=== PATIENT | female | born 1985 | race Caucasian/White ===

== ENCOUNTER → 2016-09-29 | Outpatient (CLI) | payer OTHER ==
--- NOTE | 2016-09-29 17:14 | DIAGNOSTIC IMAGING REPORT ---
PROCEDURE: US OB 1ST TRIMESTER W/TRANSVAG INDICATION: Vaginal bleeding. Check viability. TECHNIQUE: Mcmanus scale, color, and spectral Doppler transabdominal and endovaginal sonographic images of the first trimester gravid uterus were obtained. COMPARISON: None. FINDINGS: TRANSABDOMINAL SCANS: Early intrauterine . Kidneys are normal. TRANSVAGINAL SCANS: Early intrauterine (0.2 cm, 5.7 weeks). Findings suggest cardiac activity (101). Normal yolk sac. Normal fluid. Placenta circumferential with a small 1.7 x 0.7 cm lower uterine segment subchorionic hemorrhage. Normal cervix length (4.2 cm). There is a 2.7 cm simple right ovarian cyst. IMPRESSION: 1. Early intrauterine at 5.7 weeks menstrual age (plus or minus 0.7 weeks). BRITTNEY is 05/27/2017. 2. While this represents a very early , findings suggest cardiac activity (101). 3. Small 1.7 x 0.7 cm lower uterine segment subchorionic hemorrhage. 4. Findings called to Dr. Funmilayo Wagner.
== END ==
LOC: US SRH 16:14
DX: O46.8X1 Other antepartum hemorrhage, first trimester (principal); Z3A.01 Less than 8 weeks gestation of pregnancy

== ENCOUNTER 2016-10-09 15:53 | Outpatient (CLI) | payer OTHER ==
--- NOTE | 2016-10-09 18:26 | DIAGNOSTIC IMAGING REPORT ---
PROCEDURE: US OB 1ST TRIMESTER W/TRANSVAG INDICATION: VIABILITY TECHNIQUE: Mcmanus scale, color, and spectral Doppler transabdominal and endovaginal sonographic images of the first trimester gravid uterus were obtained. COMPARISON: 09/29/2016 FINDINGS: TRANSABDOMINAL SCANS: The gravid uterus is anteverted in position and contains a fundal gestational sac with a moderate decidual response. No visible perigestational hemorrhage. The cervix is closed. TRANSVAGINAL SCANS: Closed cervix measuring at least 5.2 cm in length. There is a fundal gestational sac with an average diameter of 1.9 cm. Sac contains a pole and yolk sac. Average crown-rump length is 1.3 cm. The yolk sac is of normal caliber. Detectable cardiac activity at a rate of 147 beats per minute. 2.8 cm dominant follicle on the right ovary. A thick-walled follicle on the left ovary. Moderate cul-de-sac fluid. IMPRESSION: 1. Single living intrauterine with gestational age of 7 weeks 4 days and estimated due date of 05/24/2017. 2. Interval resolution of tiny lower uterine segment perigestational hemorrhage. 3. Simple decompressing right ovarian cyst and probable left ovarian corpus luteum.
== END 2016-10-09 23:00 ==
LOC: US SRH 15:53
DX: Z34.91 Encounter for supervision of normal pregnancy, unspecified, first trimester (principal); Z3A.01 Less than 8 weeks gestation of pregnancy

== ENCOUNTER 2016-11-10 14:55 | Outpatient (CLI) | payer OTHER ==
--- NOTE | 2016-11-10 15:58 | DIAGNOSTIC IMAGING REPORT ---
PROCEDURE: US OB 1ST TRIMESTER W/TRANSVAG INDICATION: F/U TO US 10/09,VAGINAL BLEEDING TECHNIQUE: Mcmanus scale, color, and spectral Doppler transabdominal sonographic images of the first trimester gravid uterus were obtained. COMPARISON: Ultrasound dated 10/09/2016 FINDINGS: TRANSABDOMINAL SCANS: The gravid uterus is anteverted in position and contains a fundal gestational sac with a moderate residual response. No perigestational hemorrhage. The cervix is closed. A pole with an average crown-rump length of 4.8 cm is present. There is detectable cardiac activity in the fetus in a rate of 164 beats per minute. A 9 mm yolk sac was visible. Maternal ovaries appear normal. No free pelvic fluid. IMPRESSION: 1. Single living intrauterine with gestational age of 11 weeks and 4 days, and estimated due date of 05/28/17 2. Closed cervix and no perigestational hemorrhage. 3. 9 mm yolk sac.
== END 2016-11-10 23:00 ==
LOC: US SRH 14:55
DX: Z34.91 Encounter for supervision of normal pregnancy, unspecified, first trimester (principal); Z3A.11 11 weeks gestation of pregnancy

== ENCOUNTER 2016-12-29 16:14 | Outpatient (CLI) | payer OTHER ==
--- NOTE | 2016-12-29 17:39 | DIAGNOSTIC IMAGING REPORT ---
PROCEDURE: US OB DETAILED ANATOMIC INDICATION: ANATOMY TECHNIQUE: Mcmanus scale, color, and spectral Doppler images of the second trimester gravid uterus were obtained. COMPARISON: OB ultrasound 11/10/2016 FINDINGS: A single living intrauterine is in transverse presentation. There is regular cardiac activity at a rate of 153 beats per minute. The placenta is low-lying and 2.8 cm away from the internal cervical os. The cervix is closed measuring approximately 4 cm in length. The amniotic fluid volume is subjectively normal. Biparietal diameter 4.3 cm at 19 weeks and 0 days Head circumference 15.9 cm at 18 weeks and 5-day Abdominal circumference 14.2 cm at 19 weeks and 4-day Femur length 2.3 cm at 18 weeks and 3-day Estimated weight 269 g Composite gestational age 19 weeks and 0 days, BRITTNEY 05/25/2017 IMPRESSION: 1. Single living intrauterine with a composite gestational age of 19 weeks and 0 days, BRITTNEY 05/25/2017 2. Suboptimal exam due to maternal body habitus, early gestational age and presentation. Recommend repeat study in 2 weeks to evaluate anatomy.
== END 2016-12-29 23:00 ==
LOC: US SRH 16:14
DX: Z34.02 Encounter for supervision of normal first pregnancy, second trimester (principal); Z3A.19 19 weeks gestation of pregnancy

== ENCOUNTER 2017-01-10 16:05 | Outpatient (CLI) | payer OTHER ==
--- NOTE | 2017-01-10 18:28 | DIAGNOSTIC IMAGING REPORT ---
PROCEDURE: US OB RE-EVALUATION INDICATION: F/U US,ANATOMY TECHNIQUE: Mcmanus scale, color and spectral Doppler images of the gravid uterus. COMPARISON: OB ultrasound 12/29/2016 FINDINGS: Single intrauterine with breech presentation, anterior placenta without previa and heart rate 141 bpm. Amniotic fluid is unremarkable. Normal closed cervix measures 3.2 cm. The anatomic survey, including the intracranial anatomy, facial structures, nuchal region, outflow tracts, chest and diaphragm, stomach and abdomen, three- vessel cord and cord insertion, bladder and pelvis, kidneys and extremities, is within normal limits.. Spine and four-chamber heart view not well visualized due to maternal body habitus and position. BPD 4.6 cm, 54-[id number]-0-day; head circumference 17.3 cm, 19 weeks 6 days; abdominal circumference 16 cm, 21 weeks; femur length 3.4 cm, 20 weeks 5 days. Composite age 20 weeks 3 days. BRITTNEY 05/27/2017. IMPRESSION: 1. Single live intrauterine , breech, 20 weeks 3 days. 2. BRITTNEY 05/27/2017, 2 days delayed growth 3. Spine and four-chamber heart view not well visualized but remainder anatomy is within normal limits. Recommend follow-up ultrasound in 3-4 weeks.
== END 2017-01-10 23:00 ==
LOC: US SRH 16:05
DX: O32.1XX0 Maternal care for breech presentation, not applicable or unspecified (principal); Z3A.20 20 weeks gestation of pregnancy

== ENCOUNTER → 2017-02-07 | Outpatient (CLI) | payer OTHER ==
--- NOTE | 2017-02-07 16:53 | DIAGNOSTIC IMAGING REPORT ---
PROCEDURE: US OB RE-EVALUATION INDICATION: F/U FROM PRIOR US TECHNIQUE: Mcmanus scale, color and spectral Doppler images of the gravid uterus. COMPARISON: OB ultrasound 01/10/2017. FINDINGS: Single live intrauterine with vertex presentation and right anterior placenta without previa. Cervix measures 3 cm. Heart rate 136 bpm. Amniotic fluid is unremarkable. Four-chamber heart view, outflow tracts and spine are now visualized and within normal limits, completing the previous anatomy. Stomach, kidneys and bladder are also within normal limits. BPD 6.1 cm, 24 weeks 5 days; head circumference 22.3 cm, 24 weeks 2 days; abdominal circumference 20.4 cm, 25-week; femur length 4.6 cm, 25 weeks 2 days. Composite age 24 weeks 6 days. BRITTNEY 05/24/2017. IMPRESSION: 1. Single live intrauterine , vertex, 24-week 6 days 2. BRITTNEY 05/24/2017, 3 days accelerated growth 3. Four-chamber heart view, outflow tracts and spine not visualized, completing the previous anatomic survey.
== END ==
LOC: US SRH 14:57
DX: Z34.92 Encounter for supervision of normal pregnancy, unspecified, second trimester (principal); Z3A.24 24 weeks gestation of pregnancy